=== PATIENT | female | born 1950 | race Caucasian/White ===

== ENCOUNTER 2020-03-26 09:51 | Outpatient (CLI) | payer OTHER, MEDICARE, SELFPAY ==
--- NOTE | ~2020-03-26 | DEXA_ITS ---
Bone Density Report Name: Missy Jimenez Age: 69 Sex: Female Ethnicity: White Date of : 1950 Indication: postmenopausal; parental hip fracture; height loss; prior fracture; Referring Provider: Lena Gonzalez Study: Bone densitometry was performed. Exam Date: March 26, 2020 Accession number: [id number] Bone Density: Region BMD T-score Z-score Classification AP Spine (L1-L4) 0.890 -1.4 0.5 Osteopenia Femoral Neck (Left) 0.771 -0.7 1.0 Normal Total Hip (Left) 0.987 0.4 1.8 Normal Total Hip Bilateral Avg 0.979 0.3 1.7 Normal Femoral Neck (Right) 0.767 -0.7 0.9 Normal Total Hip (Right) 0.970 0.2 1.6 Normal World Health Organization criteria for BMD impression classify patients as: Normal (T-score at or above -1.0), Osteopenia (T-score between -1.0 and -2.5), or Osteoporosis (T-score at or below -2.5). 10-year Fracture Risk(1): Major Osteoporotic Fracture 22% Hip Fracture 1.5% Reported Risk Factors: [place] (), Neck BMD=0.767, BMI=27.4, previous fracture, parental fracture (1) FRAX(R) Version 3.08. Fracture probability calculated for an untreated patient. Fracture probability may be lower if the patient has received treatment. Clinical Information Provided by Patient: Has had a low trauma fracture Parent has had a hip fracture Patient maximum height was 67 Menopause Age: 52 Drinks caffeinated beverages Onset of menses at age 12 Number of children 3 Impression: The patient has low bone mass, based on the Total Spine T-score. The patient has an estimated ten-year risk of hip fracture of 1.5% and an estimated ten-year risk of major fracture of 22%, based on the WHO FRAX algorithm. The patient has risk factors, including: parental hip fracture, previous fracture. Discussion: BONE DENSITY IS LOW AT ONE OR MORE SKELETAL SITES. THE PATIENT'S BMD AND CLINICAL RISK FACTORS CONTRIBUTE TO THIS PATIENT'S INCREASED RISK OF FRACTURE. This patient's lowest T-score is low at one or more skeletal sites. It meets the World Health Organization's (WHO) criteria for ?low bone mass? (T-score between -1.0 and -2.5). The patient's 10-year risk of a major osteoporotic fracture as calculated by FRAX exceeds the threshold where pharmacological therapy is recommended by the National Osteoporosis Foundation (NOF). However, all treatment decisions require clinical judgment and consideration of individual patient factors, including patient preferences, comorbidities, previous drug use, risk factors not captured in the FRAX model (e.g., frailty, falls, vitamin D deficiency, increased bone turnover, interval significant decline in bone density) and possible under or overestimation of fracture risk by FRAX. The patient should follow a healthful lifestyle (good nutrition with adequate calcium and vitamin
== END 2020-03-26 09:52 | disposition home or self-care (01) ==
LOC: ANHIMG 09:55
PROVIDERS: PCP Family Medicine; Visit Provider Physician Assistant
DX: Z78.0 Asymptomatic menopausal state (principal); M85.88 Other specified disorders of bone density and structure, other site
CPT/HCPCS: 77080

== ENCOUNTER → 2021-05-13 00:50 | Outpatient (CLI) | payer MEDICARE, SELFPAY ==
[2021-05-14 10:57] LABS: SARS-CoV-2 RNA PCR Positive
== END ==
PROVIDERS: PCP Family Medicine; Visit Provider Family Medicine
DX: R05.9 Cough, unspecified (principal); Z20.822 Contact with and (suspected) exposure to COVID-19
CPT/HCPCS: C9803; U0003; U0005

== ENCOUNTER 2021-08-30 08:01 | Day surgery (SDC) | payer MEDICARE, SELFPAY ==
[2021-08-19 13:33] VITALS: BMI 29.5
[2021-08-30 11:17] VITALS: BP 130/68; PULSE 70; RESP 18; TEMP 35.9; O2SAT 99
[2021-08-30] MEDS: LACTATED RINGERS 1,000 ML 150 ML IV CONT (11:18)
--- NOTE | 2021-08-30 11:21 | WPDANESEPPF ---
Anes - Initial Pre Proc Eval Procedure: Operation Date: 08/30/21 12:00 Proposed Procedures p Screening Colonoscopy - Patrick Avery MD Date/Time: 08/30/21 11:21 Surgeon: Patrick Avery MD Pre Op Diagnosis: hx of colon polyps Patient Data Age: 71 Gender: F Height: 1.68 m Weight: 82.7 kg Last Vital Signs Temp 35.9 C L 08/30/21 11:17 Pulse 70 08/30/21 11:17 Resp 18 08/30/21 11:17 BP 130/68 08/30/21 11:17 Pulse Ox 99 08/30/21 11:17 Allergies Allergy/AdvReac Type Severity Reaction Status Date / Time wool Allergy Severe SEVERE Verified 08/30/21 11:14 ITCHING Penicillins Allergy Unknown Itching Verified 08/30/21 11:14 mold Allergy mouth Verified 08/30/21 11:14 itching, sneezing Home Medications Medication Instructions Recorded Confirmed Type No Home Medications 08/30/21 08/30/21 History Patient hx anesthesia problems: none Family hx anesthesia problems: none Results Review: All pre-operative results and documents have been reviewed as part of the pre-operative evaluation. [facility] Past Medical History Medical History Hepatitis C antibody test negative (01/06/20) Surgical History Surgical History H/O foot surgery H/O: hysterectomy Family History Family History Grandparent Family history of dementia Mother Diabetes mellitus Father Family history of cardiovascular disease Acute myocardial infarction, Onset Age: 57 Social History Social History Smoking status: Never smoker Alcohol intake: current Drinks per week: 3 Living arrangements: with family Spiritual care concerns: No Anes - Eval Final PreProcedure Day of Procedure 08/30/21 11:21 Patient weight: overweight Heart: regular rate and rhythm Lungs: clear to auscultation Airway: Mallampati scale class II Neurological: alert and oriented Last oral intake: >/= 8 hours ASA classification: II Emergent: no Anesthetic plan: proceed Anesthesia type and monitoring: general GIVS and standard monitoring Results Review: All pre-operative results and documents have been reviewed as part of the pre-operative evaluation. Informed Consent: The patient's anesthetic plan and its attendant risks and benefits were discussed with the patient/family/POA. Questions were solicited and answers provided to the satisfaction of the patient/family/POA.
--- NOTE | 2021-08-30 12:11 | WPDGICN ---
Assessment and Plan Assessment and plan (1) Polyp of colon: Code(s): K63.5 - Polyp of colon Status: Acute Assessment and Plan: Patient has a history of adenomatous colon polyp removed from the colon 2016. Plan is for surveillance colonoscopy at this time. Consider this a 5 year intervals. Further recommendations will be given after colonoscopy. GI Consult Note Consult date/time: 08/30/21 12:11 HPI: Missy Jimenez is a 71 year old female Presents for screening colonoscopy. Patient has a prior history of colon polyps 5 years ago. Patient reports that her current weight appetite and bowel movements are normal. She denies abdominal pain. She has had no bleeding. She presents today for neoplasia screening. Family history noncontributory. Review of Systems Review of Systems: All systems reviewed & are unremarkable except as noted in HPI and below PMFSH Past Medical History Medical History Hepatitis C antibody test negative (01/06/20) Surgical History Surgical History H/O foot surgery H/O: hysterectomy Family History Family History Grandparent Family history of dementia Mother Diabetes mellitus Father Family history of cardiovascular disease Acute myocardial infarction, Onset Age: 57 Social History Social History Smoking status: Never smoker Alcohol intake: current Drinks per week: 3 Living arrangements: with family Spiritual care concerns: No Meds Home Medications and Allergies Home Medications Medication Instructions Recorded Confirmed Type No Home Medications 08/30/21 08/30/21 History Allergies Allergy/AdvReac Type Severity Reaction Status Date / Time wool Allergy Severe SEVERE Verified 08/30/21 11:14 ITCHING Penicillins Allergy Unknown Itching Verified 08/30/21 11:14 mold Allergy mouth Verified 08/30/21 11:14 itching, sneezing Vital Signs Vital Signs - 24 hr 08/30/21 11:17 Temperature 96.7 F L Pulse Rate 70 Respiratory Rate 18 Blood Pressure 130/68 Pulse Oximetry 99 Exam Narrative: Physical exam reveals patient to be alert. Vital signs stable. HEENT exam is unremarkable. Patient is anicteric. Lungs are clear to auscultation and percussion. Heart is without murmur or extra sounds. Abdominal exam bowel sounds are present soft nontender with no organomegaly. Digital external rectal exam is normal.
[2021-08-30 12:41] VITALS: BP 101/55; PULSE 58; RESP 17; O2SAT 95
[2021-08-30 12:51] VITALS: BP 126/59; PULSE 58; RESP 14; O2SAT 100
[2021-08-30 13:01] VITALS: BP 139/71; PULSE 56; RESP 25; O2SAT 100
== END 2021-08-30 13:09 | disposition home or self-care (01) ==
PROVIDERS: PCP Family Medicine; Visit Provider Internal Medicine Gastroenterology
PROC: 0DJD8ZZ Inspection of Lower Intestinal Tract, Via Natural or Artificial Opening Endoscopic (ICD-10-PCS; CPT 45378; principal; 2021-08-30 12:00)
DX: Z12.11 Encounter for screening for malignant neoplasm of colon (principal); D12.2 Benign neoplasm of ascending colon; D12.4 Benign neoplasm of descending colon; K57.30 Diverticulosis of large intestine without perforation or abscess without bleeding; K64.8 Other hemorrhoids; Z86.010 Personal history of colon polyps
CPT/HCPCS: 45385; 88305; J2001; J2704; J7120

== ENCOUNTER 2023-04-21 11:50 | Emergency (ER) | payer MEDICARE, SELFPAY ==
[2023-04-21 12:14] VITALS: BP 129/72; PULSE 83; RESP 16; TEMP 36.8; O2SAT 98
--- NOTE | 2023-04-21 12:50 | ED.URI ---
HPI - URI/Sore Throat General Chief Complaint: Upper Respiratory Infection Stated Complaint: Cough Time Seen by Provider: 04/21/23 12:30 Source: patient Mode of arrival: ambulatory Limitations: no limitations History of Present Illness HPI Narrative: Missy is a 72-year-old female patient presenting to the clinic today with complaints of cough and mild sore throat. Reports symptoms started 4 days ago. No known fever chills. Denies any shortness of breath or chest pain. COVID testing was negative at home. MD elicited complaint: sore throat and nasal congestion Related Data Home Medications Medication Instructions Recorded Confirmed tirzepatide 2.5 mg/0.5 mL mg subcut 04/21/23 subcutaneous pen injector (Mounjaro) Allergies Allergy/AdvReac Type Severity Reaction Status Date / Time wool Allergy Severe SEVERE Verified 04/06/23 10:09 ITCHING Penicillins Allergy Unknown Itching Verified 04/06/23 10:09 mold Allergy mouth Verified 04/06/23 10:09 itching, sneezing Review of Systems Review of Systems: Pertinent positives per HPI. Patient denies any fever, chills, rash, headache, visual changes, dizziness, shortness of breath, chest pain, palpitations, nausea, vomiting, diarrhea, constipation, abdominal pain, or any urinary issues. [facility] Past Medical History Medical History Hepatitis C antibody test negative (01/06/20) Surgical History Surgical History H/O foot surgery H/O: hysterectomy Family History Family History Grandparent Family history of dementia Mother Diabetes mellitus Father Family history of cardiovascular disease Acute myocardial infarction, Onset Age: 57 Social History Social History Smoking status: Never smoker Alcohol intake: current Drinks per week: 9 Alcohol use details: wine Substance use: never Substance use type: does not use Lack of Transportation: YES Lack of Food: Never True Current Housing: I Have Housing Concerned About Future Housing: No Difficulty Paying Gas/Electric Bills: No Difficulty Paying for Meds: No Currently Unemployed: No Difficulty w/ Childcare or Family Care: No Living arrangements: with family Occupation/Education: retired Gender identity (if verbalized by the patient): Female Spiritual care concerns: No Agree to blood products: Yes Comments At the time of my signature, I reviewed and agree with the nursing past medical, surgical, social, and family history. There is no relevant family history pertinent to the patient complaint. Exam Narrative: General: Well-developed, well nourished, in no apparent distress Head: Normocephalic, atraumatic Eyes: Pupils equally round and reactive to light bilaterally, EOM intact, sclera and conjunctive clear, no discharge, lids normal Ears: TMs intact and clear, ear canals clear, no drainage, grossly hearing normal. Nose: Nares patent, no discharge, no inflammation, no sinus tenderness. Mouth: Oral pharynx red without lesions or masses, good dentition, MMM. Neck: Supple, trachea midline, no enlargement of anterior or posterior cervical nodes, no thyroid masses or goiter palpable. Cardio: Regular rate and rhythm, s1 and s2 normal, no murmur appreciated. Resp: Clear to auscultation bilaterally, no rhonchi, rales, wheezing or rubs Course Course Emergency Course: Portions of this record may have been created with voice recognition software. Level of Care: Express Care Visit Vital Signs Vital signs: Vital Signs Temperature 36.8 C 04/21/23 12:14 Pulse Rate 83 04/21/23 12:14 Respiratory Rate 16 04/21/23 12:14 Blood Pressure 129/72 04/21/23 12:14 Pulse Oximetry 98 04/21/23 12:14 Temperature
== END 2023-04-21 13:01 | disposition home or self-care (01) ==
PROVIDERS: Emergency Provider Nurse Practitioner Family; PCP Family Medicine
DX: R05.1 Acute cough (principal); J02.9 Acute pharyngitis, unspecified
CPT/HCPCS: 87081; 87880; 99213; G0463

== ENCOUNTER 2023-07-27 11:56 | Emergency (ER) | payer MEDICARE, SELFPAY ==
--- NOTE | 2023-07-27 12:01 | ED.URI ---
HPI - URI/Sore Throat General Chief Complaint: Upper Respiratory Infection Stated Complaint: Cough/Sore Throat Time Seen by Provider: 07/27/23 12:12 Source: patient, RN notes reviewed and old records reviewed Mode of arrival: ambulatory Limitations: no limitations History of Present Illness HPI Narrative: 73-year-old female presents to the [facility] with complaints of a cough, sinus congestion sore throat that started on Thursday, 2 days ago. Denies any fevers. States that she blew her nose during the night and it was yellow. Onset (ago): day(s) (2) Treatments prior to arrival: cold medicine (Coricidin) Related Data Allergies Allergy/AdvReac Type Severity Reaction Status Date / Time wool Allergy Severe SEVERE Verified 07/27/23 12:10 ITCHING Penicillins Allergy Unknown Itching Verified 07/27/23 12:10 mold Allergy mouth Verified 07/27/23 12:10 itching, sneezing Review of Systems Review of Systems: All systems reviewed & are unremarkable except as noted in HPI and below Constitutional: Constitutional: Reports no additional constitutional complaints Eyes: Eyes: Reports no additional eye complaints ENT: Reports as per HPI, Reports nasal congestion, Reports nasal discharge, Reports sinus pressure and Reports sore throat Cardiovascular: Cardiovascular: Reports no additional cardiovascular complaints, Denies chest pain and Denies dyspnea Respiratory: Respiratory: Reports as per HPI, Denies chest congestion, Reports cough and Denies dyspnea Gastrointestinal: Gastrointestinal: Reports no additional gastrointestinal complaints, Denies abdominal pain, Denies nausea and Denies vomiting Musculoskeletal: Musculoskeletal: Reports no additional musculoskeletal complaints Integumentary/Breasts: Skin/Breast: Reports system reviewed and no additional complaints, except as docu Neurologic: Reports system reviewed and no additional complaints, except as documented Psychiatric: Psychiatric: Reports no additional psychiatric complaints Allergic/Immunologic: Allergic/Immunologic: Reports no additional allergic/immunologic complaints [facility] Past Medical History Medical History Hepatitis C antibody test negative (01/06/20) Surgical History Surgical History H/O foot surgery H/O: hysterectomy Family History Family History Grandparent Family history of dementia Mother Diabetes mellitus Father Family history of cardiovascular disease Acute myocardial infarction, Onset Age: 57 Social History Social History Smoking status: Never smoker Alcohol intake: current Drinks per week: 9 Alcohol use details: wine Substance use: never Substance use type: does not use Lack of Transportation: YES Lack of Food: Never True Current Housing: I Have Housing Concerned About Future Housing: No Difficulty Paying Gas/Electric Bills: No Difficulty Paying for Meds: No Currently Unemployed: No Difficulty w/ Childcare or Family Care: No Living arrangements: with family Occupation/Education: retired Gender identity (if verbalized by the patient): Female Spiritual care concerns: No Agree to blood products: Yes Comments At the time of my signature, I reviewed and agree with the nursing past medical, surgical, social, and family history. There is no relevant family history pertinent to the patient complaint. Exam Const: General: cooperative, healthy appearing, comfortable, no acute distress, well developed, alert and well nourished Nutritional Appearance: well nourished Orientation/consciousness: patient oriented x3 Limitations: no limitations HENMT: Head: normal to inspection Ears: hearing grossly normal bilaterally, external ears normal, EAC's normal, mastoids normal, no periaur
[2023-07-27 12:04] VITALS: BP 133/76; PULSE 86; RESP 18; TEMP 37.1; O2SAT 97
== END 2023-07-27 12:49 | disposition home or self-care (01) ==
PROVIDERS: Emergency Provider Nurse Practitioner; PCP Family Medicine
DX: R09.82 Postnasal drip (principal); R09.81 Nasal congestion; R05.1 Acute cough; J06.9 Acute upper respiratory infection, unspecified; Z20.822 Contact with and (suspected) exposure to COVID-19
CPT/HCPCS: 87081; 87426; 87804; 87880; 99213; G0463

== ENCOUNTER 2024-03-09 15:07 | Outpatient (CLI) | payer MEDICARE, SELFPAY ==
--- NOTE | ~2024-03-09 | DEXA_ITS ---
Bone Density Report Name: VASQUEZ BHATT Age: 73 Sex: Female Ethnicity: White Date of : 1950 Indication: osteopenia; height loss; history of glucocorticoids; prior fracture; hysterectomy; Referring Provider: ANA YANG Study: Bone densitometry was performed. Exam Date: March 09, 2024 Accession number: [id number] Bone Density: Region BMD T-score Z-score Classification AP Spine(L1-L4) 0.880 -1.5 0.7 Osteopenia Femoral Neck (Left) 0.806 -0.4 1.5 Normal Total Hip (Left) 1.069 1.0 2.6 Normal Femoral Neck (Right) 0.809 -0.4 1.5 Normal Total Hip (Right) 1.021 0.6 2.2 Normal Total Hip Mean 1.045 0.8 2.4 Normal World Health Organization criteria for BMD impression classify patients as: Normal (T-score at or above -1.0), Osteopenia (T-score between -1.0 and -2.5), or Osteoporosis (T-score at or below -2.5). 10-year Fracture Risk(1): Major Osteoporotic Fracture 19% Hip Fracture 1.6% Reported Risk Factors: [place] (), Neck BMD=0.806, BMI=30.5, previous fracture, glucocorticoids (1) FRAX(R) Version 3.08. Fracture probability calculated for an untreated patient. Fracture probability may be lower if the patient has received treatment. Previous Exams: Region Exam Age BMD T-score BMD Change BMD Change Date g/cm2 vs Baseline vs Previous AP Spine (L1-L4) 03/09/2024 73 0.880 -1.5 -0.010 (-1.1%) -0.010 (-1.1%) 03/26/2020 69 0.890 -1.4 *Denotes significance at 95% confidence level, LSC for AP Spine = 0.022 g/cm2 # Denotes dissimilar scan types or analysis methods Clinical Information Provided by Patient: Has had a low trauma fracture Has taken Glucocorticoids Has used the following medications: Vitamin D, Calcium, multi vit Has the following medical conditions: Hysterectomy Patient maximum height was 67 Menopause Age: 52 No regular weight bearing exercise Drinks caffeinated beverages Onset of menses at age 12 Number of children 3 Impression: The patient has low bone mass, based on the Total Spine T-score. The patient has an estimated ten-year risk of hip fracture of 1.6% and an estimated ten-year risk of major fracture of 19%, based on the WHO FRAX algorithm. The patient has risk factors, including: previous fracture, history of glucocorticoid therapy. No significant bone loss was observed. Discussion: BONE DENSITY IS LOW AT ONE OR MORE SKELETAL SITES. This patient's lowest T-score is low at one or more skeletal sites. It meets the World Health Organization's (WHO) criteria for ?low bone mass? (T-score between -1.0 and -2.5). The patient's 10-year risk of fracture as calculated by FRAX is less than the threshold where pharmacological therapy is recommended by the National Osteoporosis Foundation (NOF). However, all treatment decisions require clinical judgment and consideration of individual patient factors, including patient preferences, comorbidities, previous drug use, risk factors not captured in the FRAX model (e.g., frailty, falls, vitamin D deficiency, increased bone turnover, interval significant decline in bone density) and possible under or overestimation of fracture risk by FRAX. The patient should follow a healthful lifestyle (good nutrition with adequate calcium and vitamin D, and appropriate weight-bearing exercise). Follow-Up: Consider repeating this study in 2 to 3 years to reassess this patient's status, or sooner if there is some new clinical indication. Reported by: MATY on 03/09/2024 3:42:00 PM. Reviewed, dictated and finalized at location A. LILIAN
== END 2024-03-09 15:08 | disposition home or self-care (01) ==
LOC: ANHIMG 15:08
PROVIDERS: PCP Family Medicine; Visit Provider Nurse Practitioner
DX: M85.88 Other specified disorders of bone density and structure, other site (principal)
CPT/HCPCS: 77080

== ENCOUNTER 2024-03-28 15:56 | Outpatient (CLI) | payer MEDICARE, SELFPAY ==
--- NOTE | ~2024-03-28 | XR_ITS ---
Lumbosacral Spine: AP and lateral views Clinical History: Pain Findings: The normal lordotic curve is maintained. No fracture seen. There is mild grade 1 anterolist hesis of L4 over L5. There is advanced facet arthropathies of the lumbar spine. There is advanced deg enerative disc narrowing at L5-S1.. The sacroiliac joints are normally outlined. Impression: Moderate to advanced degenerative spondylitic changes, as above. Grade 1 anterolisthesis of L4 over L5. Reviewed, dictated and finalized at location M. ING ROOM SUPERVISOR Impression: Moderate to advanced degenerative spondylitic changes, as above. Grade 1 anterolisthesis of L4 over L5.
== END 2024-03-28 15:57 | disposition home or self-care (01) ==
LOC: GOSHIMG 15:56
PROVIDERS: PCP Family Medicine; Visit Provider Nurse Practitioner
DX: M43.16 Spondylolisthesis, lumbar region (principal)
CPT/HCPCS: 72100

== ENCOUNTER 2024-09-27 14:50 | Outpatient (CLI) | payer MEDICARE, SELFPAY ==
--- NOTE | ~2024-09-27 | MM_ITS ---
Examination: screening [facility] BI W marisela INDICATION: Asymptomatic, referred for screening mammogram COMPARISON: 03/24/2017 TECHNIQUE: Full field digital CC, MLO views of Both breasts were obtained with computer-aided detect ion to assist in interpretation of the study. FINDINGS: There are scattered areas of fibroglandular density. There is a superficial mass in the inferior medial right breast subareolar location. Biopsy clip in the right breast. No other focal dominant mass, architectural distortion or suspicious calcifications identified. IMPRESSION: 1. Right breast superficial mass. 2. No evidence of malignancy in the Left breast. RECOMMENDATION: Right breast ultrasound BI-RADS 0, INCOMPLETE, NEEDS ADDITIONAL IMAGING EVALUATION Reviewed, dictated and finalized at location B.
--- OUTSIDE RECORDS SUMMARY | 2024-09-27 14:53 | XMS_ITS | Clinical Summary ---
Author Organization [facility] [address] Address [address] [place] [address] Care Team Providers Care Seafood And Service Meat Manager Name Role Phone Daisy Loza DO Primary Care Provider [phone] Surgical History Surgery Date Site/Laterality Comments FACIAL SURGERY Facial Surgery - (Added by TW Conv) TOTAL ABDOMINAL HYSTERECTOMY 04/27/2003 - 04/26/2004 Total Abdominal Hysterectomy - (Added by TW Conv) OOPHORECTOMY 04/27/2003 - 04/26/2004 Bilateral BREAST BIOPSY 04/29/2017 Right benign stereo bx Medical History Medical History Date Comments 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 - (Added by TW Conv) Closed fracture of zygoma (HCC) Closed fracture of zygomatic arch - (Added by TW Conv) Family History Medical History Relation Name Comments Heart disease Father Heart Disease - (Added by TW Conv) Dementia Mother Dementia - (Add ed by TW Conv) Diabetes Mother Diabetes Mellit us - (Added by TW Conv) Breast cancer Mother's Sister Ovarian cancer Neg Hx Thyroid cancer Neg Hx Relation Name Status Comments Father Mother Mother's Sister Social History Tobacco Use Types Packs/Day Years Used Date Smoking Tobacco: Never Comments No Sex and Gender Information Value Date Recorded Sex Assigned at Not on file Legal Sex Female 10:03 AM VIDEOGRAPHER Gender Identity Female 05/02/2024 7:05 PM VIDEOGRAPHER Sexual Orientation Straight 05/02/2024 7: 05 PM VIDEOGRAPHER Obstetrics History Para Term AB IAB SAB Ectopic Multiple Livin g Live Births 3 3 3 Date Outcome GA Total Labor Labor/2nd/3rd Weight Sex Type Anes PTL Luz A1 A5 Name Clin Term Term Term Last Filed Vital Signs Vital Sign Reading Time Taken Comments Blood Pressure 126/71 03/01/2013 3:59 PM VIDEOGRAPHER Pulse 80 03/01/2013 3:59 PM VIDEOGRAPHER Temperature - - Respiratory Rate - - Oxygen Saturation 98% 03/01/2013 3:59 PM VIDEOGRAPHER Inhaled Oxygen Concentration - - Weight 79.4 kg (175 lb) 03/01/2013 3:59 PM VIDEOGRAPHER Height 167.6 cm (5' 6) 12/17/2022 10:35 AM CDT Body Mass Index 27.41 03/01/2013 3:59 PM VIDEOGRAPHER Plan of Treatment Health Maintenance Due Date Last Done Comments Colon Cancer Screening-Colonoscopy 1950 Depression Screening 1950 Fall Risk Assessment 1950 Hepatitis C Screening 1950 Osteoporosis Screening-Bone Density Scan 1950 Hepatitis B Screening 1970 Well Visit 65+ 2017 Breast Cancer Screening-Mammogram 12/18/2023 12/17/2022, 08/12/2021, 01/24/2020, Additional history exists Covid-19 Vaccine (2023-2 5 season) 2023 02/02/2023, 10/29/2021, 01/24/2021, Additional history exists Influenza Vaccine (Season Ended) 2024 02/02/2023, 03/26/2022, 01/24/2021, Additional history exists DTaP/Tdap/Td Vaccine (2 - Td or Tdap) 06/30/2028 06/30/2018 Pneumococcal vaccine 65+ Completed 12/12/2019, 09/2018 Zoster Vaccine Completed 02/20/2021, 04/05/2020 Procedures Procedure Name Priority Date/Time Associated Diagnosis Comments SCREENING MAMMOGRAM BILATERAL W JA Schedule Routine, Read Routine (OP Routine) 12/17/2022 10:42 AM CDT Screening mammogram, encounter for from Last 3 Months or Most Recently Relevant to Health Maintenance Results * Screening Mammogram Bilateral W Ja (12/17/2022 10:42 AM CDT) Anatomical Region Laterality Modality Breast Bilateral Mammography 12/17/2022 12:5 1 PM CDT Impressions 12/17/2022 12:51 PM CDT There is no mammographic evidence of malignancy. A 1 year screening mammogram is recommended. BI-RADS: 2 - Benign. The patient has been or will be contacted. The patient will be entered into a reminder system with a target due date of 1 year for her next mammogram. Electronically signed by: Aurelio Enciso M.D. Narrative 12/17/2022 12:51 PM CDT EXAMINATION: SCREENING MAMMOGRAM BILATERAL W JA ORDERING HEALTHCARE PROVIDER: SELF SCREENING MAMMOGRAM HISTORY: Routine screening mammography. COMPARISON: 08/12/2021, 01/24/2020, 04/29/2017, 04/29/2017 TECHNIQUE: CC and MLO views of the bilateral breasts were obtained with digital technique using breast tomosynthesis with C view. Computer aided detection was utilized. FINDINGS: DENSITY: There are scattered fibroglandular elements in the bilateral breasts. BREASTS: There is a biopsy marking clip in the right breast. There are benign calcifications in both breasts. There are no suspicious masses, suspicious calcifications, or other suspicious findings in either breast. There has been no suspicious interval change. us Self Screening Mammogram IMG MAMMO PROCEDURES Fi nal Result from Last 3 Months or Most Recently Relevant to Health Maintenance Insurance [facility] MEDICARE ADVANTAGE [facility]ICARE Address: [facility] [address] [place] [address] MEDICARE [facility] [employer] [facility] MEDICARE ADVANTAGE Care Teams Seafood And Service Meat Manager Relationship Specialty Start Date End Date Daisy Loza DO PCP - General Family Medicine 07/18/21
--- OUTSIDE RECORDS SUMMARY | 2024-09-27 14:53 | XMS_ITS | Referral Summary ---
Author Organization [address] lto Address [address] [place] [address] Care Team Providers Care Alining Inspector Name Role Phone Daisy Loza DO Primary Care Provider +1- [phone] Social History Tobacco Use Types Packs/Day Years Used Date Smoking Tobacco: Never Comments No Sex and Gender Information Value Date Recorded Sex Assigned at Not on file Legal Sex Female 10:03 AM MANAGER DAIRY Gender Identity Female 05/02/2024 7:05 PM MANAGER DAIRY Sexual Orientation Straight 05/02/2024 7: 05 PM MANAGER DAIRY Last Filed Vital Signs Vital Sign Reading Time Taken Comments Blood Pressure 126/71 03/01/2013 3:59 PM MANAGER DAIRY Pulse 80 03/01/2013 3:59 PM MANAGER DAIRY Temperature - - Respiratory Rate - - Oxygen Saturation 98% 03/01/2013 3:59 PM MANAGER DAIRY Inhaled Oxygen Concentration - - Weight 79.4 kg (175 lb) 03/01/2013 3:59 PM MANAGER DAIRY Height 167.6 cm (5' 6) 12/17/2022 10:35 AM CDT Body Mass Index 27.41 03/01/2013 3:59 PM MANAGER DAIRY Plan of Treatment Not on file Procedures Procedure Name Priority Date/Time Associated Diagnosis [...] Most Recently Relevant to Health Maintenance Insurance [facility] MEDICARE [facility]ANT[facility] Address: [facility] [address] [place] [address] MEDICARE [facility] AETNA [facility] U[employer] MEDICARE ADVANTAGE Care Teams Alining Inspector Relationship Specialty Start Date End Date Daisy Loza DO PCP - General Family Medicine 07/18/21
== END 2024-09-27 14:51 | disposition home or self-care (01) ==
LOC: CHSIMG 14:51
PROVIDERS: PCP Family Medicine; Visit Provider Nurse Practitioner
DX: Z12.31 Encounter for screening mammogram for malignant neoplasm of breast (principal); R92.8 Other abnormal and inconclusive findings on diagnostic imaging of breast
CPT/HCPCS: 77063; 77067

== ENCOUNTER 2024-10-04 11:29 | Outpatient (CLI) | payer MEDICARE, SELFPAY ==
--- NOTE | ~2024-10-04 | US_ITS ---
US breast RT limited 10/04/2024 11:48 Indication: Call back for right breast mass Procedure: High-resolution Limited ultrasound of the right breast Comparison: Mammogram dated 09/27/2024 Findings: In the subareolar location of the right breast inferior medially there is a 6 mm cyst. Also in the subareolar location there is an oval hypoechoic parallel oriented mass measuring 4 mm with lo w-level internal echoes, no posterior features and parallel orientation, likely benign. Impression: 1: Probable benign right breast masses in the subareolar location. BI-RADS CATEGORY 3-PROBABLY BENIGN FINDING RECOMMENDATION: Six-month follow-up diagnostic right mammogram and Limited right breast ultrasound. Reviewed, dictated and finalized at location B. Impression: 1: Probable benign right breast masses in the subareolar location. BI-RADS CATEGORY 3-PROBABLY BENIGN FINDING RECOMMENDATION: Six-month follow-up diagnostic right mammogram and Limited righ t breast ultrasound.
--- OUTSIDE RECORDS SUMMARY | 2024-10-04 12:47 | XMS_ITS | Clinical Summary ---
Author Organization [facility] [address] [facility] lt Address [address] [place] [address] Care Team Providers Care Solar Energy Systems Engineer Name Role Phone Daisy Loza DO Primary Care Provider +1- [phone] Surgical History Surgery Date Site/Laterality Comments FACIAL [...] on file Legal Sex Female 10:03 AM CAR PILOT Gender Identity Female 05/02/2024 7:05 PM CAR PILOT Sexual Orientation Straight 05/02/2024 7: 05 PM CAR PILOT Obstetrics History Para Term AB IAB SAB Ectopic Multiple Livin g Live Births 3 3 3 Date Outcome GA Total Labor Labor/2nd/3rd Weight Sex Type Anes PTL Luz A1 A5 Name Clin Term Term Term Last Filed Vital Signs Vital Sign Reading Time Taken Comments Blood Pressure 126/71 03/01/2013 3:59 PM CAR PILOT Pulse 80 03/01/2013 3:59 PM CAR PILOT Temperature - - Respiratory Rate - - Oxygen Saturation 98% 03/01/2013 3:59 PM CAR PILOT Inhaled Oxygen Concentration - - Weight 79.4 kg (175 lb) 03/01/2013 3:59 PM CAR PILOT Height 167.6 cm (5' 6) 12/17/2022 10:35 AM CDT Body Mass Index 27.41 03/01/2013 3:59 PM CAR PILOT Plan of Treatment Health Maintenance Due Date [...] Most Recently Relevant to Health Maintenance Insurance [facility] MEDICARE ADVANTAGE MEDICARE [facility] AETNA SIGNATURE [facility] MEDICARE ADVANTAGE Care Teams Solar Energy Systems Engineer Relationship Specialty Start Date End Date Daisy Loza DO PCP - General Family Medicine 07/18/21
--- OUTSIDE RECORDS SUMMARY | 2024-10-04 12:47 | XMS_ITS | Referral Summary ---
Author Organization [address] lto Address [address] [place] [address] Care Team Providers Care Metal Patternmaker Apprentice Name Role Phone Daisy Loza DO Primary Care Provider +1- [phone] Social History Tobacco Use Types Packs/Day Years Used Date Smoking Tobacco: Never Comments No Sex and Gender Information Value Date Recorded Sex Assigned at Not on file Legal Sex Female 10:03 AM DRAINMAN Gender Identity Female 05/02/2024 7:05 PM DRAINMAN Sexual Orientation Straight 05/02/2024 7: 05 PM DRAINMAN Last Filed Vital Signs Vital Sign Reading Time Taken Comments Blood Pressure 126/71 03/01/2013 3:59 PM DRAINMAN Pulse 80 03/01/2013 3:59 PM DRAINMAN Temperature - - Respiratory Rate - - Oxygen Saturation 98% 03/01/2013 3:59 PM DRAINMAN Inhaled Oxygen Concentration - - Weight 79.4 kg (175 lb) 03/01/2013 3:59 PM DRAINMAN Height 167.6 cm (5' 6) 12/17/2022 10:35 AM CDT Body Mass Index 27.41 03/01/2013 3:59 PM DRAINMAN Plan of Treatment Not on file Procedures [...] Most Recently Relevant to Health Maintenance Insurance [facility] MEDICARE ADVANTAGE MEDICARE [facility] AETNA [facility] [employer] MEDICARE ADVANTAGE Care Teams Metal Patternmaker Apprentice Relationship Specialty Start Date End Date Daisy Loza DO PCP - General Family Medicine 07/18/21
== END 2024-10-04 11:30 | disposition home or self-care (01) ==
LOC: ANHIMG 11:30
PROVIDERS: PCP Family Medicine; Visit Provider Nurse Practitioner
DX: R92.8 Other abnormal and inconclusive findings on diagnostic imaging of breast (principal)
CPT/HCPCS: 76642

== ENCOUNTER 2025-04-05 10:44 | Outpatient (CLI) | payer MEDICARE, SELFPAY ==
--- NOTE | ~2025-04-05 | MMUS_ITS ---
EXAMINATION: MM diagnostic jesus alberto RT w marisela, US breast RT limited HISTORY: Follow-up TECHNIQUE: Craniocaudal and mediolateral oblique 3-D tomosynthesis images were obtained and synthetic 2-D images were generated. CAD analysis was submitted and interpreted. Grayscale sonography over the area(s) of interest with color Doppler if there is a finding. COMPARISON: September 27 and October 04 BREAST PARENCHYMAL COMPOSITION: Not Dense: There are scattered areas of fibroglandular MAMMOGRAM FINDINGS: In the area of previously described right breast mass/masses, there is been no significant interval change. There is a somewhat linear, beaded appearance to a superficial structure inferomedially. There are no suspicious calcifications. No unexplained architectural distortion is seen. There are no skin or nipple abnormalities identified. There is no adenopathy seen on the images submitted. ULTRASOUND FINDINGS: Sonography through the inferomedial retroareolar region demonstrates some mild ductal ectasia. There is one duct which is very superficially located, dilated, and has a beaded appearance with focal dilatations of the ducts. This is a benign appearance. In addition, the circumscribed, homogeneous, hypoechoic nodule with a maximum dimension of 4 mm is again noted, unchanged. IMPRESSION: The structure with a shape like a string of pearls has been identified as a benign appearing dilated duct. The patient is due for bilateral mammography in October 20. At that time, sonographic reevaluation for the small hypoechoic nodule should be performed. BI-RADS 3 - Probably benign - short-term follow-up is recommended. Reviewed, dictated and finalized at location C. LLITE TV TECHNICIAN IMPRESSION: The structure with a shape like a string of pearls has been identified as a ceicly ign appearing dilated duct. The patient is due for bilateral mammography in Sep. At that time, sonographic reevaluation for the small hypoechoic nodule sh ould be performed. BI-RADS 3 - Probably benign - short-term follow-up is recommended. IMPRESSION: The structure with a shape like a string of pearls has been identified as a cecily ign appearing dilated duct. The patient is due for bilateral mammography in Sep. At that time, sonographic reevaluation for the small hypoechoic nodule sh ould be performed. BI-RADS 3 - Probably benign - short-term follow-up is recommended.
== END 2025-04-05 10:45 | disposition home or self-care (01) ==
LOC: ANHFOHIMG 10:46
PROVIDERS: PCP Family Medicine; Visit Provider Nurse Practitioner
DX: N60.41 Mammary duct ectasia of right breast (principal)
CPT/HCPCS: 76642; 77061; 77065; G0279